=== PATIENT | male | born 1990 | race African-American/Black ===

== ENCOUNTER 2019-05-24 12:35 | Emergency (ER) | payer MEDICAID ==
[~2019-05-24] VITALS: Ht 180.3 cm; Wt 77.1 kg
[2019-05-24 12:44] VITALS: BP 122/84
[2019-05-24] MEDS ORDERED: Albuterol/Ipratropium 3ml neb HHN ONE ×2 (12:45→13:45)
--- NOTE | 2019-05-24 12:47 | NUR ---
ED Nurse Note: Pt brought in by EMS due to SOB that started since last night. Pt reports that he ran out of rescue inhaler x 1 month. Hx of asthma. Albuterol neb 8mg given by EMS en route and D 10 given for BS of 54. AAO x4, follows command with non labored breathing. Lungs clear when auscultated.
[2019-05-24] MEDS ORDERED: ALBUTEROL SULF8.5 GM INH (13:35)
[2019-05-24] MEDS ORDERED: PREDNISONE20 MG ORAL (13:35)
--- NOTE | 2019-05-24 13:35 | NUR ---
ED Nurse Note: respiratory therapist on bedside giving nebulization
--- NOTE | 2019-05-24 15:00 | NUR ---
ED Nurse Note: rspiratory therapist on bedside giving breathing treatment.
[2019-05-24 15:12] VITALS: BP 108/80
--- NOTE | 2019-05-24 15:12 | NUR ---
ER DISCHARGE NOTE: Patient is cleared to be discharged per ERMD, pt is aox4, on room air, with stable vital signs. pt was given dc and prescription instructions, pt was able to verbalize understanding, pt id band and iv site removed without complications. pt is able to ambulate with steady gait. pt took all belongings.
--- NOTE | 2019-05-24 21:45 | Emergency Room Report ---
History of Present Illness General Chief Complaint: Dyspnea/Respdistress Source: Patient Present Illness Allergies: Coded Allergies: No Known Allergies (Unverified , 05/24/19) Patient History Reviewed Nursing Documentation: PMH: Agreed; PSxH: Agreed Nursing Documentation-PMH Past Medical History: No History, Except For Hx Asthma: Yes Physical Exam Vital Signs Date Time Temp Pulse Resp B/P (MAP) Pulse Ox O2 Delivery O2 Flow Rate FiO2 05/24/19 12:37 97.3 86 20 122/84 (97) 99 Room Air 05/24/19 12:43 21 Medical Decision Making Diagnostic Impression: Primary Impression: Asthma exacerbation Last Vital Signs Date Time Temp Pulse Resp B/P (MAP) Pulse Ox O2 Delivery O2 Flow Rate FiO2 05/24/19 15:12 97.3 88 18 108/80 100 Room Air 21 88 Status: improved Disposition: HOME, SELF-CARE Condition: Stable Scripts Albuterol Sulfate* (ALBUTEROL SULFATE MDI*) 8.5 Gm Hfa.aer.ad 2 PUFF INH Q6H, #1 EA 0 Refills Prov: Asad Valenzuela MD 05/24/19 Prednisone* (PREDNISONE*) 20 Mg Tablet 40 MG ORAL DAILY, #10 TAB Prov: Asad Valenzuela MD 05/24/19 Referrals: NOT CHOSEN IPA/,REFERRING (PCP) Patient Instructions: Chronic Obstructive Pulmonary Disease Exacerbation Asad Valenzuela MD May 24, 2019 21:45
== END 2019-05-24 15:12 | disposition home or self-care (01) ==
LOC: EDBD 12:35 → EMR 15:10
DX: J45.901 Unspecified asthma with (acute) exacerbation (principal)
CPT/HCPCS: 94640; 94664; 99284; J7512; J7620